=== PATIENT | female | born 1955 | race Caucasian/White ===

== ENCOUNTER 2019-02-10 19:13 | Observation (INO) ==
--- NOTE | 2019-02-10 19:59 | Emergency Department Note ---
Disposition Clinical Impression: Weakness, Pneumonia Disposition: Admitted As Inpatient Condition: Good Referrals: NONE,PCP [Primary Care Provider] - Forms: ED Satisfaction Letter General Adult HPI - General Chief complaint: ED Weakness Stated complaint: Weakness Time Seen by Provider: 02/10/19 19:16 Source: patient, EMS Mode of arrival: EMS Limitations: no limitations Nursing Notes Reviewed: Yes Vital Signs Reviewed: Yes - History of Present Illness HPI Narrative: Patient presenting to the ED from [facility] with weakness and altered mental status. EMS states that they were called and were given a packet by the retirement and told that she was confused. Have no idea how long this is been going on. Patient did not oriented to time and unable to further elaborate. She denies any pain. States she just feels weak all over. Patient also states that the "boob squad" is here. When asked what that is she says that they are here b/c her boobs are flying. Pain Scale: 0 - Related Data Previous Rx's Medication Instructions Recorded Atorvastatin [Lipitor] 40 mg PO HS 30 Days #30 tablet 01/24/19 Clopidogrel [Plavix] 75 mg PO DAILY 30 Days #30 tablet 01/24/19 Cyanocobalamin (B-12) [Vitamin B12] 1,000 mcg PO DAILY 30 Days #30 01/24/19 tablet Ergocalciferol (VITAMIN D2) 50,000 unit PO QWEEK 42 Days #6 01/24/19 [Drisdol (50,000 Unit)] capsule Folic Acid 1 mg PO DAILY 30 Days #30 tablet 01/24/19 Allergies Allergy/AdvReac Type Severity Reaction Status Date / Time aspirin Allergy Seizure Verified 01/16/19 05:44 Review of Systems: As reviewed in the HPI. All other systems reviewed are negative or normal. Past Medical History - Past Medical History Attestation: Yes The following information was validated with the patient. Source: patient, old records reviewed, obtained from family Medical history: Reports: CVA, DVT, hypertension Psychiatric history: Reports: no psych history - Social History Smoking Status: Never smoker Alcohol use: Reports: heavy Drug use: Reports: none Physical Exam CONSTITUTIONAL: [well appearing, alert and in no acute distress] EYES: [EOMI, clear conjunctiva, PERRLA] HENT: [Normocephalic, atraumatic, moist mucus membranes, normal oropharynx] NECK: [normal inspection, full ROM, trachea midline, no obvious swelling] PULMONARY: [normal lung sounds bilaterally, normal chest rise and fall, no respiratory distress or stridor, no wheezes, no rales, no rhonchi CARDIOVASCULAR: [regular rate, irregular rhythm, normal heart sounds, no murmurs, distal extremities are warm and well perfused] GASTROINSTESTINAL: [soft, non-tender, non-rigid, non-distended, no guarding, no rebound, normal bowel sounds] GENITOURINARY/RECTAL: [deferred] NEUROLOGIC: [Alert, oriented x person only, normal speech, ble weakness] EXTREMITIES: [Normal inspection, , no tenderness, no pedal edema, normal capillary refill] MUSCULOSKELETAL: [no gross deformities, atraumatic] SKIN: [No cyanosis, no diaphoresis, normal color, warm, no rash] PSYCHIATRIC: [normal mood and affect] - General Limitations: no limitations General appearance: alert, in no apparent distress Course Course Narrative: Patient appears to have pneumonia, white count is normal. Patient felt uncomfortable going home and would prefer to be admitted. Vital Signs Temperature 97.3 F L 02/10/19 19:16 Pulse Rate 72 02/10/19 19:16 Respiratory Rate 16 02/10/19 19:16 Blood Pressure 149/92 02/10/19 19:16 O2 Sat by Pulse Oximetry 100 02/10/19 19:16 Temperature 97.3 F L 02/10/19 19:16 Pulse Rate 71 02/10/19 22:30 Respiratory Rate 16 02/10/19 22:30 Blood Pressure 180/90 02/10/19 22:30 O2 Sat by Pulse Oximetry 100 02/10/19 22:30 Oxygen Delivery Oxygen Delivery Room Air Medical Decision Making - Lab Data Result diagrams: 02/10/19 20:08 02/10/19 20:08 Lab Results 02/10/19 02/10/19 02/10/19 Range/Units 20:08 20:08 20:08 WBC 7.3 (4.3-11.1) K/mcL RBC 4.08 (3.82-4.97) M/mcL Hgb 12.7 (11.5-15.4) g/dL Hct 37.9 (35.3-44.9) % MCV 92.9 (83.0-100.0) fL MCH 31.1 (28.0-33.3) pg MCHC 33.5 (31.6-35.5) g/dL RDW 17.3 H (11.5-14.5) % Plt Count 420 H (140-400) K/mcL MPV 9.3 L (9.4-12.4) fL Immature Gran % 0.3 (0-4) % Seg Neutrophils % 70.3 % Lymphocytes % 15.2 % Monocytes % 12.8 % Eosinophils % 1.0 % Basophils % 0.4 % Neutrophils # 5.1 (1.6-8.9) K/mcL Lymphocytes # 1.1 (0.6-4.6) K/mcL Monocytes # 0.9 (0.0-1.3) K/mcL Eosinophils # 0.1 (0.0-0.6) K/mcL Basophils # 0.0 (0.0-0.2) K/mcL PT 12.6 H (9.4-12.1) Seconds INR 1.1 Sodium 137 (136-145) mEq/L Potassium 3.4 L (3.5-5.1) mEq/L Chloride 107 (98-107) mEq/L Carbon Dioxide 21 L (23-29) mEq/L BUN 20 (8-23) mg/dL Creatinine 0.87 (0.60-1.20) mg/dL Est GFR ( Amer) > 60 (> 60) Est GFR (Non-Af Amer) > 60 (> 60) BUN/Creatinine Ratio 23 (6-26) Glucose 69 L (70-105) mg/dL Calculated Osmolality 285 (280-300) Calcium 8.0 L (8.6-10.3) mg/dL Creatine Kinase 51 (30-223) Units/L Troponin I 0.03 (< 0.04) ng/mL TSH 2.091 (0.340-5.600) mcIU/mL Urine Color (Yellow) Urine Clarity (Clear) Urine pH (5.0-8.0) pH Units Ur Specific [place] (1.010-1.025) Urine Protein (Neg-Trace) mg/dL Urine Glucose (UA) (Normal) mg/dL Urine Ketones (Negative) mg/dL Urine Blood (Negative) Urine Nitrite (Negative) Urine Bilirubin (Negative) Urine Urobilinogen (Normal) mg/dL Ur Leukocyte Esterase (Negative) Urine Microscopic RBC (0-3) per hpf Urine Microscopic WBC (0-3) per hpf Ur Squamous Epith Cells (None-Few) per lpf Urine Bacteria (None-Few) per hpf Hyaline Casts (None-Few) per lpf Ur Culture Indicated? (NO) 02/10/19 Range/Units 21:30 WBC (4.3-11.1) K/mcL RBC (3.82-4.97) M/mcL Hgb (11.5-15.4) g/dL Hct (35.3-44.9) % MCV (83.0-100.0) fL MCH (28.0-33.3) pg MCHC (31.6-35.5) g/dL RDW (11.5-14.5) % Plt Count (140-400) K/mcL MPV (9.4-12.4) fL Immature Gran % (0-4) % Seg Neutrophils % % Lymphocytes % % Monocytes % % Eosinophils % % Basophils % % Neutrophils # (1.6-8.9) K/mcL Lymphocytes # (0.6-4.6) K/mcL Monocytes # (0.0-1.3) K/mcL Eosinophils # (0.0-0.6) K/mcL Basophils # (0.0-0.2) K/mcL PT (9.4-12.1) Seconds INR Sodium (136-145) mEq/L Potassium (3.5-5.1) mEq/L Chloride (98-107) mEq/L Carbon Dioxide (23-29) mEq/L BUN (8-23) mg/dL Creatinine (0.60-1.20) mg/dL Est GFR ( Amer) (> 60) Est GFR (Non-Af Amer) (> 60) BUN/Creatinine Ratio (6-26) Glucose (70-105) mg/dL Calculated Osmolality (280-300) Calcium (8.6-10.3) mg/dL Creatine Kinase (30-223) Units/L Troponin I (< 0.04) ng/mL TSH (0.340-5.600) mcIU/mL Urine Color Dark Yellow (Yellow) Urine Clarity Cloudy A (Clear) Urine pH 6.0 (5.0-8.0) pH Units Ur Specific [place] 1.021 (1.010-1.025) Urine Protein 30 H (Neg-Trace) mg/dL Urine Glucose (UA) Normal (Normal) mg/dL Urine Ketones 40 H (Negative) mg/dL Urine Blood Negative (Negative) Urine Nitrite Negative (Negative) Urine Bilirubin Large H (Negative) Urine Urobilinogen 4.0 H (Normal) mg/dL Ur Leukocyte Esterase Small H (Negative) Urine Microscopic RBC 0-3 (0-3) per hpf Urine Microscopic WBC 5-15 H (0-3) per hpf Ur Squamous Epith Cells Many H (None-Few) per lpf Urine Bacteria Many H (None-Few) per hpf Hyaline Casts Few (None-Few) per lpf Ur Culture Indicated? YES A (NO)
[2019-02-10 20:18] LABS: Basophils % 0.4 %; Eosinophils # 0.1 K/mcL (0.0-0.6); Hematocrit 37.9 % (35.3-44.9); Hemoglobin 12.7 g/dL (11.5-15.4); Immature Granulocytes % 0.3 % (0-4); Lymphocytes # 1.1 K/mcL (0.6-4.6); Lymphocytes % 15.2 %; Mean Corpuscular HGB Conc 33.5 g/dL (31.6-35.5); Mean Corpuscular Hemoglobin 31.1 pg (28.0-33.3); Mean Corpuscular Volume 92.9 fL (83.0-100.0); Mean Platelet Volume 9.3 fL (9.4-12.4); Monocytes # 0.9 K/mcL (0.0-1.3); Monocytes % 12.8 %; Neutrophils # 5.1 K/mcL (1.6-8.9); Platelet Count 420 K/mcL (140-400); Red Blood Count 4.08 M/mcL (3.82-4.97); Red Cell Distribution Width 17.3 % (11.5-14.5); Segmented Neutrophils % 70.3 %
[2019-02-10 20:28] LABS: INR 1.1; Prothrombin Time 12.6 Seconds (9.4-12.1)
[2019-02-10 20:39] LABS: BUN/Creatinine Ratio 23 (6-26); Blood Urea Nitrogen 20 mg/dL (8-23); Carbon Dioxide 21 mEq/L (23-29); Chloride 107 mEq/L (98-107); Creatine Kinase 51 Units/L (30-223); Glucose 69 mg/dL (70-105); Osmolality,Calculated 285 (280-300); Potassium 3.4 mEq/L (3.5-5.1); Sodium 137 mEq/L (136-145); eGFR For Non-African Americans > 60 (> 60)
[2019-02-10 20:40] LABS: Troponin I 0.03 ng/mL (< 0.04)
[2019-02-10 20:52] LABS: Thyroid Stimulating Hormone 2.091 mcIU/mL (0.340-5.600)
[2019-02-10 21:45] LABS: Bilirubin,Urine Large (Negative); Blood,Urine Negative (Negative); Clarity,Urine Cloudy (Clear); Color,Urine Dark Yellow (Yellow); Glucose,Urine (UA) Normal (Normal); Ketones,Urine 40 mg/dL (Negative); Leukocyte Esterase,Urine Small (Negative); Nitrite,Urine Negative (Negative); Protein,Urine 30 mg/dL (Neg-Trace); Specific Gravity,Urine 1.021 (1.010-1.025)
[2019-02-10 21:47] LABS: Bacteria,Urine Many per hpf (None-Few); RBC,Urine 0-3 per hpf (0-3); Squamous Epithelial Cell,Urine Many per lpf (None-Few)
[2019-02-10 21:56] LABS: Hyaline Casts,Urine Few per lpf (None-Few)
[2019-02-10] MEDS ORDERED: cefTRIAXone 1,000 MG in Water for inj. (sterile) 20 ML 10 ML IVPB ONE (23:05)
[2019-02-10] MEDS ORDERED: Azithromycin 500 MG in D5% in Water 250 ML IVPB ONE (23:05)
--- NOTE | 2019-02-10 23:07 | Emergency Department Note ---
Disposition Clinical Impression: Weakness Pneumonia Qualifiers: Pneumonia type: due to unspecified organism Laterality: unspecified laterality Lung location: unspecified part of lung Qualified Code(s): J18.9 - Pneumonia, unspecified organism Disposition: Admitted As Inpatient Condition: Good Referrals: NONE,PCP [Primary Care Provider] - Forms: ED Satisfaction Letter Time of Disposition: 23:07 General Adult HPI - General Chief complaint: ED Weakness Stated complaint: Weakness Time Seen by Provider: 02/10/19 19:16 Source: patient, EMS Mode of arrival: EMS Limitations: no limitations - History of Present Illness Pain Scale: 0 - Related Data Previous Rx's Medication Instructions Recorded Atorvastatin [Lipitor] 40 mg PO HS 30 Days #30 tablet 01/24/19 Clopidogrel [Plavix] 75 mg PO DAILY 30 Days #30 tablet 01/24/19 Cyanocobalamin (B-12) [Vitamin B12] 1,000 mcg PO DAILY 30 Days #30 01/24/19 tablet Ergocalciferol (VITAMIN D2) 50,000 unit PO QWEEK 42 Days #6 01/24/19 [Drisdol (50,000 Unit)] capsule Folic Acid 1 mg PO DAILY 30 Days #30 tablet 01/24/19 Allergies Allergy/AdvReac Type Severity Reaction Status Date / Time aspirin Allergy Seizure Verified 01/16/19 05:44 Past Medical History - Past Medical History Medical history: Reports: CVA, DVT, hypertension Psychiatric history: Reports: no psych history - Social History Smoking Status: Never smoker Alcohol use: Reports: heavy Drug use: Reports: none Physical Exam - General Limitations: no limitations General appearance: alert, in no apparent distress Course - Consultations Consultation #1: discussed case with Dr. Sales and he accepts patient to medicine Time: 23:52 Vital Signs Temperature 97.3 F L 02/10/19 19:16 Pulse Rate 72 02/10/19 19:16 Respiratory Rate 16 02/10/19 19:16 Blood Pressure 149/92 02/10/19 19:16 O2 Sat by Pulse Oximetry 100 02/10/19 19:16 Temperature 97.3 F L 02/10/19 19:16 Pulse Rate 71 02/10/19 22:30 Respiratory Rate 16 02/10/19 22:30 Blood Pressure 180/90 02/10/19 22:30 O2 Sat by Pulse Oximetry 100 05/10/19 22:30 Oxygen Delivery Oxygen Delivery Room Air Medical Decision Making - Lab Data Result diagrams: 02/10/19 20:08 02/10/19 20:08 Lab Results 02/10/19 02/10/19 02/10/19 Range/Units 20:08 20:08 20:08 WBC 7.3 (4.3-11.1) K/mcL RBC 4.08 (3.82-4.97) M/mcL Hgb 12.7 (11.5-15.4) g/dL Hct 37.9 (35.3-44.9) % MCV 92.9 (83.0-100.0) fL MCH 31.1 (28.0-33.3) pg MCHC 33.5 (31.6-35.5) g/dL RDW 17.3 H (11.5-14.5) % Plt Count 420 H (140-400) K/mcL MPV 9.3 L (9.4-12.4) fL Immature Gran % 0.3 (0-4) % Seg Neutrophils % 70.3 % Lymphocytes % 15.2 % Monocytes % 12.8 % Eosinophils % 1.0 % Basophils % 0.4 % Neutrophils # 5.1 (1.6-8.9) K/mcL Lymphocytes # 1.1 (0.6-4.6) K/mcL Monocytes # 0.9 (0.0-1.3) K/mcL Eosinophils # 0.1 (0.0-0.6) K/mcL Basophils # 0.0 (0.0-0.2) K/mcL PT 12.6 H (9.4-12.1) Seconds INR 1.1 Sodium 137 (136-145) mEq/L Potassium 3.4 L (3.5-5.1) mEq/L Chloride 107 (98-107) mEq/L Carbon Dioxide 21 L (23-29) mEq/L BUN 20 (8-23) mg/dL Creatinine 0.87 (0.60-1.20) mg/dL Est GFR ( Amer) > 60 (> 60) Est GFR (Non-Af Amer) > 60 (> 60) BUN/Creatinine Ratio 23 (6-26) Glucose 69 L (70-105) mg/dL Calculated Osmolality 285 (280-300) Calcium 8.0 L (8.6-10.3) mg/dL Creatine Kinase 51 (30-223) Units/L Troponin I 0.03 (< 0.04) ng/mL TSH 2.091 (0.340-5.600) mcIU/mL Urine Color (Yellow) Urine Clarity (Clear) Urine pH (5.0-8.0) pH Units Ur Specific [place] (1.010-1.025) Urine Protein (Neg-Trace) mg/dL Urine Glucose (UA) (Normal) mg/dL Urine Ketones (Negative) mg/dL Urine Blood (Negative) Urine Nitrite (Negative) Urine Bilirubin (Negative) Urine Urobilinogen (Normal) mg/dL Ur Leukocyte Esterase (Negative) Urine Microscopic RBC (0-3) per hpf Urine Microscopic WBC (0-3) per hpf Ur Squamous Epith Cells (None-Few) per lpf Urine Bacteria (None-Few) per hpf Hyaline Casts (None-Few) per lpf Ur Culture Indicated? (NO) 02/10/19 Range/Units 21:30 WBC (4.3-11.1) K/mcL RBC (3.82-4.97) M/mcL Hgb (11.5-15.4) g/dL Hct (35.3-44.9) % MCV (83.0-100.0) fL MCH (28.0-33.3) pg MCHC (31.6-35.5) g/dL RDW (11.5-14.5) % Plt Count (140-400) K/mcL MPV (9.4-12.4) fL Immature Gran % (0-4) % Seg Neutrophils % % Lymphocytes % % Monocytes % % Eosinophils % % Basophils % % Neutrophils # (1.6-8.9) K/mcL Lymphocytes # (0.6-4.6) K/mcL Monocytes # (0.0-1.3) K/mcL Eosinophils # (0.0-0.6) K/mcL Basophils # (0.0-0.2) K/mcL PT (9.4-12.1) Seconds INR Sodium (136-145) mEq/L Potassium (3.5-5.1) mEq/L Chloride (98-107) mEq/L Carbon Dioxide (23-29) mEq/L BUN (8-23) mg/dL Creatinine (0.60-1.20) mg/dL Est GFR ( Amer) (> 60) Est GFR (Non-Af Amer) (> 60) BUN/Creatinine Ratio (6-26) Glucose (70-105) mg/dL Calculated Osmolality (280-300) Calcium (8.6-10.3) mg/dL Creatine Kinase (30-223) Units/L Troponin I (< 0.04) ng/mL TSH (0.340-5.600) mcIU/mL Urine Color Dark Yellow (Yellow) Urine Clarity Cloudy A (Clear) Urine pH 6.0 (5.0-8.0) pH Units Ur Specific [place] 1.021 (1.010-1.025) Urine Protein 30 H (Neg-Trace) mg/dL Urine Glucose (UA) Normal (Normal) mg/dL Urine Ketones 40 H (Negative) mg/dL Urine Blood Negative (Negative) Urine Nitrite Negative (Negative) Urine Bilirubin Large H (Negative) Urine Urobilinogen 4.0 H (Normal) mg/dL Ur Leukocyte Esterase Small H (Negative) Urine Microscopic RBC 0-3 (0-3) per hpf Urine Microscopic WBC 5-15 H (0-3) per hpf Ur Squamous Epith Cells Many H (None-Few) per lpf Urine Bacteria Many H (None-Few) per hpf Hyaline Casts Few (None-Few) per lpf Ur Culture Indicated? YES A (NO) Attestation Statement - Attestation Attestation: I examined this patient and my medical decision-making was reviewed with the [facility] Physician. I agree with the documented findings, disposition and treatment plan as described except to the extent set forth below. 64 year old female presents to the ED with complaints of weaknes and it apepars that she has pneumonia on CXR and otehrwise is not hypoxic but appears frgaile and weak at bedside. WE will start ABX and then admit ot medicine.
[2019-02-11] MEDS ORDERED: traMADol 50 MG TABLET PO PRN (02:02)
[2019-02-11] MEDS ORDERED: *HR* Promethazine 25 MG/ML VIAL IVP PRN (02:02)
[2019-02-11] MEDS ORDERED: Naloxone 0.4 MG/ML INJ IVP PRN (02:02)
[2019-02-11] MEDS ORDERED: Acetaminophen 325 MG TABLET PO PRN (02:02)
--- NOTE | 2019-02-11 02:36 | Internal Med History&Physical ---
Date of Encounter: 02/11/19 Time of Encounter: 01:30 Internal Medicine - H&P: HPI Chief complaint: AMS/Weakness Admitted From: Emergency Dept Plans for Post Hospital Care: Home History of present illness: Ms. 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 Pt. states she [place] alone [place] [facility]. EMS was called by [facility] where pt. lives d/t confusion. Pt. states she is very weak. She was able to tell me who the President of the was, her birthdate, where she is, but was not able to give me the correct year. Pt. believes she has been in the hospital for several days. Pt. reports she does not eat well. Patient denies recent illness or sick contacts, fever, chills, headache, changes in vision, unusual bleeding, chest pain, shortness of breath, cough, chest congestion, abdominal pain, diarrhea, constipation, numbness, tingling, dizziness, lightheadedness, pre-syncope, or syncope. Past Med Surg Social Fam HX - Past Medical History Source: patient, old records reviewed Medical history: CVA, DVT, GERD, hyperlipidemia, hypertension Additional medical history: weakness. rhabdomyolysis. ascities. ETOH abuse. carotid stenosis Psychiatric history: no psych history - Past Surgical History Additional surgical history: gastric bypass 2004 - Social History Smoking Status: Former smoker Packs per day: 2.5 PPD - Reports quitting "a long time ago" Alcohol use: heavy Drug use: none Current living situation: [facility] Activity Level: Independent ambulation Recent Out of Country Travel Within the Last 8 Weeks: No Exposure or Possible Exposure to Illness During Travel: No - Family History Father Race: Family Member Ethnicity: Non- Living Status: Cause of : Drug/Alcohol abuse Paternal Grandmother Race: Family Member Ethnicity: Non- Living Status: Hx Family Cardiac Disorders: Yes (Coronary artery disease) Hx Family Cancer: Yes (Breast cancer) Mother Race: Family Member Ethnicity: Non- Living Status: Still Living Hx Family Medical Disorders: No Sister Race: Family Member Ethnicity: Non- Living Status: Still Living Hx Family Psychosocial Disorders: Yes (Obesity) Internal Medicine - H&P: Meds Atorvastatin [Lipitor] 40 mg PO HS 30 Days #30 tablet 01/24/19 [Rx] Clopidogrel [Plavix] 75 mg PO DAILY 30 Days #30 tablet 01/24/19 [Rx] Cyanocobalamin (B-12) [Vitamin B12] 1,000 mcg PO DAILY 30 Days #30 tablet 01/24/19 [Rx] Ergocalciferol (VITAMIN D2) [Drisdol (50,000 Unit)] 50,000 unit PO QWEEK 42 Days #6 capsule 01/24/19 [Rx] Folic Acid 1 mg PO DAILY 30 Days #30 tablet 01/24/19 [Rx] Alprazolam 0.25 mg PO DAILY 02/11/19 [History] Gabapentin 100 mg PO TID 02/11/19 [History] Lisinopril 5 mg PO DAILY 02/11/19 [History] Metoprolol Tartrate 25 mg PO BID 02/11/19 [History] Ondansetron 4 mg PO Q6H PRN 02/11/19 [History] Pantoprazole 40 mg PO DAILY 02/11/19 [History] Allergy/AdvReac Type Severity Reaction Status Date / Time aspirin Allergy Seizure Verified 01/16/19 05:44 All Systems PM: A 10-system review of systems was performed and is negative for pertinent findings except as documented above in the HPI. - Constitutional Constitutional: as per HPI, anorexia, fatigue, weakness, no chills, no fever(s), no night sweats - EENT Eyes: no change in vision, no discharge, no pain, no photophobia Ears: no ear discharge, no ear pain, no tinnitus Nose, mouth and throat: no dysphagia, no nasal discharge, no neck pain, no sore throat - Breasts Breasts: as per HPI - Cardiovascular Cardiovascular ROS IM: as per HPI, no chest pain, no diaphoresis, no dyspnea, no lightheadedness, no palpitations, no syncope - Respiratory Respiratory: no cough, no dyspnea, no wheezing, no excessive phlegm production - Gastrointestinal Gastrointestinal: no abdominal pain, no diarrhea, no hematemesis, no hematochezia, no melena, no nausea, no vomiting - Genitourinary Genitourinary: no change in urinary stream, no dysuria, no flank pain, no hematuria Menstruation: as per HPI - Musculoskeletal Musculoskeletal ROS IM: no numbness, no tingling - Integumentary Integumentary IM: no rash, no unusual bruising - Neurological Neurological ROS: as per HPI, weakness, no confusion, no convulsions, no focal weakness, no numbness, no tingling, no tremor(s) - Psychiatric Psychiatric: as per HPI - Endocrine Endocrine IM: as per HPI - Hematologic/Lymphatic Hematologic/Lymphatic: no easy bruising - Allergic/Immunologic Allergic/Immunologic: as per HPI - Constitutional Vitals: Temp Pulse Resp BP Pulse Ox 98.1 F 68 18 171/87 97 02/11/19 01:03 02/11/19 01:03 02/11/19 01:03 02/11/19 01:03 02/11/19 01:03 General appearance: Present: cooperative, A&O X 2, pleasant, no acute distress, underweight Exam: Patient examined at bedside. Pt. states she lives alone in [place] [facility]. EMS was called by [facility] where pt. lives d/t confusion. Pt. states she is very weak. She was able to tell me who the President of the was, her birthdate, where she is, but was not able to give me the correct year. Pt. believes she has been in the hospital for several days. Pt. denies any other sx or complaints at this time. VS: 98.1F temp, HR 68, RR 18, BP 171/87, SpO2 97% on RA. - Head Head exam: Present: atraumatic, normocephalic - Eye Eye exam: Present: PERRL, conjuntiva pink, sclera anicteric Pupils: Present: PERRL - ENT ENT exam: Present: normal exam - Neck Neck exam general surgery: Present: normal inspection, supple, trachea midline. Absent: lymphadenopathy - Respiratory Respiratory exam: Present: CTAB. Absent: accessory muscle use, rales, rhonchi, wheezes - Cardiovascular Cardiovascular exam: Present: RRR, +S1, +S2. Absent: diastolic murmur, gallop, rubs, systolic murmur - GI/Abdominal GI/Abdominal exam: Present: normal bowel sounds, soft, no peritoneal signs. Absent: distended, tenderness - Rectal Rectal exam: Present: deferred - Additional comments: exam deferred. - Extremities Exam Extremities exam: Present: warm, radial pulses palpable and symmetrical. Absent: calf tenderness, cyanotic, pedal edema - Back Exam Back exam: Present: normal inspection - Neurological Exam Neurological exam: Present: altered, CN II-XII intact, no focal deficits. Absent: pronater drift, facial droop, speech deficit - Psychiatric Psychiatric exam: Present: normal affect, normal mood - Skin Skin exam: Present: dry, intact Internal Med - H&P Results - Labs CBC & Chem 7: 02/10/19 20:08 02/10/19 20:08 Labs: Short CBC 02/10/19 Range/Units 20:08 WBC 7.3 (4.3-11.1) K/mcL Hgb 12.7 (11.5-15.4) g/dL Hct 37.9 (35.3-44.9) % Plt Count 420 H (140-400) K/mcL Neutrophils # 5.1 (1.6-8.9) K/mcL BMP 02/10/19 20:08 Sodium 137 Potassium 3.4 L Chloride 107 Carbon Dioxide 21 L BUN 20 Creatinine 0.87 Glucose 69 L Calcium 8.0 L Cardiac Enzymes 02/10/19 Range/Units 20:08 Troponin I 0.03 (< 0.04) ng/mL Urine 02/10/19 Range/Units 21:30 Urine Color Dark Yellow (Yellow) Urine Clarity Cloudy A (Clear) Urine pH 6.0 (5.0-8.0) pH Units Ur Specific [place] 1.021 (1.010-1.025) Urine Protein 30 H (Neg-Trace) mg/dL Urine Glucose (UA) Normal (Normal) mg/dL - Impressions ITS Impressions Chest X-Ray 02/10/19 19:37 IMPRESSION: Elevated left hemidiaphragm with airspace opacification at the left lung base could represent atelectasis or pneumonia D/ / Casimiro Bermeo MD / Casimiro Bermeo MD Interpreting Provider: Casimiro Bermeo MD Head CT 02/10/19 19:38 IMPRESSION: No acute intracranial abnormality. D/ / Sanket Yanes / Sanket Yanes Interpreting Provider: Sanket Yanes - Diagnostic Studies CT scan - head Additional comments: Impressions Head CT 02/10/19 19:38 IMPRESSION: No acute intracranial abnormality. D/ / Sanket Yanes / Sanket Yanes Interpreting Provider: Sanket Yanes Chest x-ray Additional comments: Impressions Chest X-Ray 02/10/19 19:37 IMPRESSION: Elevated left hemidiaphragm with airspace opacification at the left lung base could represent atelectasis or pneumonia D/ / Casimiro Bermeo MD / Casimiro Bermeo MD Interpreting Provider: Casimiro Bermeo MD - Assessment and Plan (1) Pneumonia Current Visit: Yes Status: Acute Assessment and plan: Acute CAP. Pt. denies any sick contacts. Pt. denies any recent hospitalization. WBC 7.3. VS WNL. CXR today shows elevated left hemidiaphragm with airspace opacification of the left lung base could represent atelectasis or pneumonia. Pt . denies cough, SOB, or chest congestion. Denies home O2 use. Stat blood cultures 2 ordered. Urine culture ordered stat. Legionella and streptococcal pneumoniae antigens ordered. IVPB azithromycin and ceftriaxone ordered for infection coverage of pneumonia as well as UTI. DuoNeb's every 6 hours when necessary. Continuous cardiac telemetry. Supplemental O2 with titration and SPO2 monitoring. Pt. is high risk for further morbidity and complications d/t current PNA complicated by UTI, AMS, severe weakness, decreased appetite and intake, hx of alcohol abuse, hx of tobacco abuse, and risk factors. Observation. Qualifiers: Pneumonia type: due to unspecified organism Laterality: left Lung location: lower lobe of lung Qualified Code(s): J18.1 - Lobar pneumonia, unspecified organism (2) UTI (urinary tract infection) Current Visit: Yes Status: Acute Assessment and plan: Acute UTI. U/A indicative of UTI and culture. Ammonia level ordered. Hepatic panel ordered d/t hx of alcohol abuse. IVPB azithromycin and ceftriaxone for infection coverage. Monitor I&O. Qualifiers: Urinary tract infection type: site unspecified Hematuria presence: without hematuria Qualified Code(s): N39.0 - Urinary tract infection, site not specified (3) Altered mental status Current Visit: Yes Status: Acute Assessment and plan: Acute AMS. Pt. is A&O x2. Exhibits some lucid moments then moments of confusion. U/A indicative of UTI and culture. Ammonia level ordered. Hepatic panel ordered d/t hx of alcohol abuse. IVPB azithromycin and ceftriaxone for infection coverage. Falls/safety precautions and up with assist. Qualifiers: Altered mental status type: disorientation Qualified Code(s): R41.0 - Disorientation, unspecified (4) Weakness Current Visit: Yes Status: Acute Assessment and plan: Acute and severe weakness. Pt. reports she is not eating well. Nutrition consult ordered for PO supplementation. Falls/safety precautions and up with assist. (5) HTN (hypertension) Current Visit: Yes Status: Chronic Assessment and plan: Hx of chronic HTN. Monitor pt. and VS. continue patient's metoprolol and lisinopril. IVP hydralazine w/parameters ordered. Qualifiers: Hypertension type: essential hypertension Qualified Code(s): I10 - Essential (primary) hypertension (6) HLD (hyperlipidemia) Current Visit: Yes Status: Chronic Assessment and plan: Hx of chronic HLD. Lipid panel in a.m. labs. Continue pts. Lipitor. Qualifiers: Hyperlipidemia type: pure hypercholesterolemia Qualified Code(s): E78.00 - Pure hypercholesterolemia, unspecified; E78.0 - Pure hypercholesterolemia (7) Alcohol abuse Current Visit: Yes Status: Chronic Assessment and plan: Hx of chronic alcohol abuse. Pt. reports she drinks "a lot" and last drink was 4-5 days ago. Stat blood alcohol level ordered. Will start CIWA scale based on blood alcohol results. B12 and Folate levels in a.m. labs. Continue pts. PO B12. (8) Vitamin D deficiency Current Visit: Yes Status: Chronic Assessment and plan: Hx of chronic vitamin D deficiency. 25-oh vitamin D level in a.m. labs. (9) Anxiety Current Visit: Yes Status: Chronic Assessment and plan: Hx of chronic anxiety. Continue pts. Alprazolam. (10) DVT prophylaxis Current Visit: Yes Status: Acute Assessment and plan: Heparin 5,000 units SQ Q12HR for DVT prophylaxis. Monitor pt. for signs of bleeding. - Time Spent With Patient Total time spent is greater than 50% in coordination of care (as documented) at patient's floor/unit and/or counseling patient: Greater than 35 minutes
[2019-02-11] MEDS: Gabapentin 100 MG CAPSULE PO SCH ×4 (03:40→21:28)
[2019-02-11] MEDS ORDERED: Ipratropium/Albuterol Neb 3 ML IH PRN (04:00)
[2019-02-11] MEDS: *HR* Heparin 5,000 UNIT/ML VIAL SQ SCH ×2 (05:43→17:09)
[2019-02-11] MEDS ORDERED: Ondansetron ODT 4 MG TAB.RAPDIS PO PRN (07:19)
[2019-02-11] MEDS: ALPRAZolam 0.25 MG TABLET PO SCH (08:55)
[2019-02-11] MEDS: Folic Acid 1 MG TABLET PO SCH (08:55)
[2019-02-11] MEDS ORDERED: Cyanocobalamin (B-12) 1,000 MCG TABLET PO SCH (09:00)
[2019-02-11 09:07] LABS: Hematocrit 34.3 % (35.3-44.9); Hemoglobin 11.7 g/dL (11.5-15.4); Mean Corpuscular HGB Conc 34.1 g/dL (31.6-35.5); Mean Corpuscular Hemoglobin 31.5 pg (28.0-33.3); Mean Corpuscular Volume 92.2 fL (83.0-100.0); Mean Platelet Volume 9.3 fL (9.4-12.4); Platelet Count 374 K/mcL (140-400); Red Blood Count 3.72 M/mcL (3.82-4.97); Red Cell Distribution Width 17.4 % (11.5-14.5)
[2019-02-11 09:17] LABS: Alanine Aminotransferase 36 Units/L (7-52); Albumin/Globulin Ratio 1.2 (1.1-2.2); Alkaline Phosphatase 114 Units/L (34-104); Aspartate Amino Transferase 54 Units/L (13-39); BUN/Creatinine Ratio 24 (6-26); Bilirubin,Direct 0.3 mg/dL (0.0-0.2); Bilirubin,Indirect 0.7 mg/dL (0.0-1.2); Blood Urea Nitrogen 19 mg/dL (8-23); Calcium 7.6 mg/dL (8.6-10.3); Carbon Dioxide 22 mEq/L (23-29); Chloride 105 mEq/L (98-107); Chol/HDL Ratio 3.9 (0-4.9); Cholesterol 174 mg/dL (< 200); Globulin 2.6 g/dL (2.4-3.5); Glucose 69 mg/dL (70-105); HDL Cholesterol 45 mg/dL (40-59); LDL Cholesterol,Calculated 106 mg/dL (0-99); Magnesium 1.6 mg/dL (1.6-2.6); Osmolality,Calculated 287 (280-300); Potassium 3.8 mEq/L (3.5-5.1); Sodium 138 mEq/L (136-145); Total Protein 5.6 g/dL (6.4-8.9); Triglycerides 115 mg/dL (< 150); eGFR For Non-African Americans > 60 (> 60)
[2019-02-11 09:41] LABS: Folate 15.3 ng/mL (3.0-16.0)
[2019-02-11 09:42] LABS: Vitamin B12 > 1500 pg/mL (250-1100)
--- NOTE | 2019-02-11 14:15 | Event Note ---
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 Patient feels weak. Mentally clear. Oriented 3. Denies dysuria. Denies cough or shortness of breath Pt is AAO x 3, in NAD, thin built HEENT: NC/AT, PERRL Neck: Supple, no JVD, no LAD Lungs: CTA b/l Heart: S1S2, RRR Abd: Soft, nontender, BS present Ext: ROM wnl, no pedal edema Neuro: Bilateral leg weakness which is chronic Plan: UTI: Continue Rocephin. Follow-up urine culture Weakness: Continue PTOT, plan for ECF discharge Pneumonia: Less likely pneumonia as patient has no clinical symptoms. Atypical antigen negative. Will DC azithromycin.
[2019-02-11] MEDS ORDERED: cefTRIAXone 2,000 MG in Water for inj. (sterile) 20 ML 20 ML IVP SCH (22:00)
[2019-02-11] MEDS ORDERED: Azithromycin 500 MG in D5% in Water 250 ML IVPB SCH (23:30)
[2019-02-12 01:38] LABS: Basophils % 0.3 %; Eosinophils % 0.6 %; Hematocrit 38.7 % (35.3-44.9); Hemoglobin 13.1 g/dL (11.5-15.4); Immature Granulocytes % 0.4 % (0-4); Lymphocytes % 14.5 %; Mean Corpuscular HGB Conc 33.9 g/dL (31.6-35.5); Mean Corpuscular Hemoglobin 31.3 pg (28.0-33.3); Mean Corpuscular Volume 92.6 fL (83.0-100.0); Mean Platelet Volume 9.6 fL (9.4-12.4); Monocytes # 0.8 K/mcL (0.0-1.3); Monocytes % 11.5 %; Platelet Count 467 K/mcL (140-400); Red Blood Count 4.18 M/mcL (3.82-4.97); Red Cell Distribution Width 17.6 % (11.5-14.5); Segmented Neutrophils % 72.7 %
[2019-02-12 01:57] LABS: BUN/Creatinine Ratio 23 (6-26); Blood Urea Nitrogen 20 mg/dL (8-23); Calcium 8.1 mg/dL (8.6-10.3); Carbon Dioxide 22 mEq/L (23-29); Chloride 105 mEq/L (98-107); Glucose 60 mg/dL (70-105); Osmolality,Calculated 290 (280-300); Potassium 3.8 mEq/L (3.5-5.1); Sodium 140 mEq/L (136-145); eGFR For Non-African Americans > 60 (> 60)
[2019-02-12] MEDS: *HR* Heparin 5,000 UNIT/ML VIAL SQ SCH (05:46)
[2019-02-12] MEDS: ALPRAZolam 0.25 MG TABLET PO SCH (08:42)
[2019-02-12] MEDS: Folic Acid 1 MG TABLET PO SCH (08:42)
[2019-02-12] MEDS: Gabapentin 100 MG CAPSULE PO SCH ×2 (08:42→13:56)
[2019-02-12 11:42] LABS: Estimated Average Glucose 62 mg/dl; Hemoglobin A1C 3.8 %
--- NOTE | 2019-02-12 12:07 | AcuteCare Surgery Consult Note ---
<Ladi Brown N - Last Filed: 02/12/19 12:18> Date of Encounter: 02/12/19 Time of Encounter: 12:18 Assessment and Plan (1) Severe protein-calorie malnutrition Status: Acute 64-year-old female with a prior history of gastric bypass surgery with evidence for severe protein calorie malnutrition admitted for generalized weakness and altered mental status No prior records available from patient's bariatric surgery, patient is a poor historian and cannot completely recall where and when the surgery took place Recommend protein supplementation and appreciate nutrition recommendations Albumin 3.0, will order prealbumin Recommend establishing with bariatric surgery on an outpatient basis History of Present Illness Consult date: 02/12/19 History of present illness: Patient is a 64-year-old female with a past family history of gastric bypass surgery, CVA with residual left-sided weakness, hypertension, hyperlipidemia, and GERD who presented to the emergency department for weakness and altered ment al status. Patient was admitted to the hospital with initial concerns for pneumonia which was later ruled out. Acute care surgery was consulted for malnutrition with a history of bariatric surgery. Nutrition is following the patient and notes severe protein-calorie malnutrition with weight loss c reatinine 7.5% in 3 months. Patient seen and examined, she is a poor historian and the history is limited. She states that she underwent gastric bypass surgery a few years ago and believes that it was performed in [place]. She is not oriented to time and therefore does not know the year or surgery. Patient states she lives alone at home and cooks for herself however on review of records it appears the patient was brought to the hospital from an F where she currently resides. On review [facility], unable to find recent visits that mention her prior surgical history. Previous abdominal imaging from 01/18/19 reveals postsurgical changes related to gastric bypass with small bowel anastomosis in the left upper quadrant, no postoperative complications were evident at that time. Past Med Surg Social Fam HX - Past Medical History Medical history: CVA, DVT, GERD, hyperlipidemia, hypertension Additional medical history: weakness. rhabdomyolysis. ascities. ETOH abuse. carotid stenosis Psychiatric history: no psych history - Past Surgical History Additional surgical history: gastric bypass 2004 - Social History Smoking Status: Former smoker Packs per day: 2.5 PPD - Reports quitting "a long time ago" Alcohol use: heavy Drug use: none - Family History Father Race: Family Member Ethnicity: Non- Living Status: Cause of : Drug/Alcohol abuse Hx Family Cardiac Disorders: Yes (Coronary artery disease) Hx Family Endocrine Disorder: Yes (Hypertension) Paternal Grandmother Race: Family Member Ethnicity: Non- Living Status: Hx Family Cardiac Disorders: Yes (Coronary artery disease) Hx Family Cancer: Yes (Breast cancer) Mother Race: Family Member Ethnicity: Non- Living Status: Still Living Hx Family Medical Disorders: No Sister Race: Family Member Ethnicity: Non- Living Status: Still Living Hx Family Psychosocial Disorders: Yes (Obesity) Medications and Allergies Atorvastatin [Lipitor] 40 mg PO HS 30 Days #30 tablet 01/24/19 [Rx] Clopidogrel [Plavix] 75 mg PO DAILY 30 Days #30 tablet 01/24/19 [Rx] Cyanocobalamin (B-12) [Vitamin B12] 1,000 mcg PO DAILY 30 Days #30 tablet 01/24/19 [Rx] Ergocalciferol (VITAMIN D2) [Drisdol (50,000 Unit)] 50,000 unit PO QWEEK 42 Days #6 capsule 01/24/19 [Rx] Folic Acid 1 mg PO DAILY 30 Days #30 tablet 01/24/19 [Rx] ALPRAZolam [Xanax 0.25 MG Tablet] 0.25 mg PO Q6H PRN 02/11/19 [History] Gabapentin [Neurontin] 100 mg PO TID 02/11/19 [History] Lisinopril [Zestril] 5 mg PO DAILY 02/11/19 [History] Metoprolol [Lopressor] 25 mg PO BID 02/11/19 [History] Ondansetron HCl [Zofran] 4 mg PO Q6H PRN 02/11/19 [History] Pantoprazole Sodium [Protonix] 40 mg PO DAILY 02/11/19 [History] hydrALAZINE [HydrALAZINE] 10 mg PO Q6H PRN 02/11/19 [History] raNITIdine HCl [Zantac] 150 mg PO DAILY 02/11/19 [History] Allergy/AdvReac Type Severity Reaction Status Date / Time aspirin Allergy Seizure Verified 01/16/19 05:44 Review of Systems All systems PM: The remainder of the systems were reviewed and are negative - Constitutional no chills, no fever(s) - Cardiovascular no chest pain - Respiratory no dyspnea - Gastrointestinal no abdominal pain, no hematochezia, no loose stools, no nausea, no vomiting - Genitourinary Genitourinary: no dysuria, no hematuria - Musculoskeletal muscle weakness - Neurological weakness - Psychiatric confusion General Surgery Exam Initial Vital Signs Temp Pulse Resp BP Pulse Ox 97.3 F L 72 16 149/92 100 02/10/19 19:16 02/10/19 19:16 02/10/19 19:16 02/10/19 19:16 02/10/19 19:16 - General physical appearance no distress, cachectic - Eyes PERRL, normal ocular movement - ENT normal pinna, no hearing loss - Neck trachea midline, no venous distension - Respiratory normal respiratory effort, clear to auscultation - Cardiovascular Cardiovascular exam: Present: RRR. Absent: murmurs - Abdomen Abdomen general surgery: Present: bowel sounds present, soft, non tender - Integumentary Integumentary general surgery: Present: warm and dry - Neurologic Present: other (Confused, poor historian) - Psychiatric Psychiatric general surgery: Present: oriented to person. Absent: oriented to place, oriented to time, memory intact Exam Initial Vital Signs Temp Pulse Resp BP Pulse Ox 97.3 F L 72 16 149/92 100 02/10/19 19:16 02/10/19 19:16 02/10/19 19:16 02/10/19 19:16 02/10/19 19:16 Results - Labs 02/12/19 00:36 02/12/19 00:36 Abnormal lab results RBC 3.72 M/mcL (3.82-4.97) L 02/11/19 08:45 Hct 34.3 % (35.3-44.9) L 02/11/19 08:45 RDW 17.6 % (11.5-14.5) H 02/12/19 00:36 Plt Count 467 K/mcL (140-400) H 02/12/19 00:36 MPV 9.3 fL (9.4-12.4) L 02/11/19 08:45 PT 12.6 Seconds (9.4-12.1) H 02/10/19 20:08 Potassium 3.4 mEq/L (3.5-5.1) L 02/10/19 20:08 Carbon Dioxide 22 mEq/L (23-29) L 02/12/19 00:36 Glucose 60 mg/dL (70-105) L 02/12/19 00:36 Calcium 8.1 mg/dL (8.6-10.3) L 02/12/19 00:36 0.3 mg/dL (0.0-0.2) H 02/11/19 08:45 AST 54 Units/L (13-39) H 02/11/19 08:45 114 Units/L (34-104) H 02/11/19 08:45 5.6 g/dL (6.4-8.9) L 02/11/19 08:45 3.0 g/dL (3.5-5.7) L 02/11/19 08:45 LDL Cholesterol, Calc 106 mg/dL (0-99) H 02/11/19 08:45 Vitamin B12 > 1500 pg/mL (250-1100) H 02/11/19 08:45 25-OH Vitamin D Total 7 ng/mL (30-80) L 02/11/19 08:45 Cloudy (Clear) A 02/10/19 21:30 30 mg/dL (Neg-Trace) H 02/10/19 21:30 40 mg/dL (Negative) H 02/10/19 21:30 Large (Negative) H 02/10/19 21:30 4.0 mg/dL (Normal) H 02/10/19 21:30 Ur Leukocyte Esterase Small (Negative) H 02/10/19 21:30 5-15 per hpf (0-3) H 02/10/19 21:30 Ur Squamous Epith Cells Many per lpf (None-Few) H 02/10/19 21:30 Many per hpf (None-Few) H 02/10/19 21:30 Ur Culture Indicated? YES (NO) A 02/10/19 21:30 Diabetes panel 02/11/19 02/12/19 Range/Units 08:45 00:36 Sodium 140 (136-145) mEq/L Potassium 3.8 (3.5-5.1) mEq/L Chloride 105 (98-107) mEq/L Carbon Dioxide 22 L (23-29) mEq/L BUN 20 (8-23) mg/dL Creatinine 0.88 (0.60-1.20) mg/dL Glucose 60 L (70-105) mg/dL Hemoglobin A1c 3.8 ( - 5.6) % Calcium 8.1 L (8.6-10.3) mg/dL Calcium panel 02/12/19 Range/Units 00:36 Calcium 8.1 L (8.6-10.3) mg/dL Pituitary panel 02/12/19 Range/Units 00:36 Sodium 140 (136-145) mEq/L Potassium 3.8 (3.5-5.1) mEq/L Chloride 105 (98-107) mEq/L Carbon Dioxide 22 L (23-29) mEq/L BUN 20 (8-23) mg/dL Creatinine 0.88 (0.60-1.20) mg/dL Glucose 60 L (70-105) mg/dL Calcium 8.1 L (8.6-10.3) mg/dL Adrenal panel 02/12/19 Range/Units 00:36 Sodium 140 (136-145) mEq/L Potassium 3.8 (3.5-5.1) mEq/L Chloride 105 (98-107) mEq/L Carbon Dioxide 22 L (23-29) mEq/L BUN 20 (8-23) mg/dL Creatinine 0.88 (0.60-1.20) mg/dL Glucose 60 L (70-105) mg/dL Calcium 8.1 L (8.6-10.3) mg/dL All other labs normal. Consult Discharge Plan - Plan Instructions: Urinary Tract Infection in Women (DC), Vertigo (DC), Rhabdomyolysis (DC), Weakness (GEN), Altered Mental Status (GEN) Referrals: NONE,PCP [Primary Care Provider] - <Suraj Acevedo - Last Filed: 02/12/19 16:37> Date of Encounter: 02/12/19 Review of Systems All systems PM: The remainder of the systems were reviewed and are negative General Surgery Exam Initial Vital Signs Temp Pulse Resp BP Pulse Ox 97.3 F L 72 16 149/92 100 02/10/19 19:16 02/10/19 19:16 02/10/19 19:16 02/10/19 19:16 02/10/19 19:16 Exam Initial Vital Signs Temp Pulse Resp BP Pulse Ox 97.3 F L 72 16 149/92 100 02/10/19 19:16 02/10/19 19:16 02/10/19 19:16 02/10/19 19:16 02/10/19 19:16 Results - Labs 02/12/19 00:36 02/12/19 00:36 Abnormal lab results RBC 3.72 M/mcL (3.82-4.97) L 02/11/19 08:45 Hct 34.3 % (35.3-44.9) L 02/11/19 08:45 RDW 17.6 % (11.5-14.5) H 02/12/19 00:36 Plt Count 467 K/mcL (140-400) H 02/12/19 00:36 MPV 9.3 fL (9.4-12.4) L 02/11/19 08:45 PT 12.6 Seconds (9.4-12.1) H 02/10/19 20:08 Potassium 3.4 mEq/L (3.5-5.1) L 02/10/19 20:08 Carbon Dioxide 22 mEq/L (23-29) L 02/12/19 00:36 Glucose 60 mg/dL (70-105) L 02/12/19 00:36 Calcium 8.1 mg/dL (8.6-10.3) L 02/12/19 00:36 0.3 mg/dL (0.0-0.2) H 02/11/19 08:45 AST 54 Units/L (13-39) H 02/11/19 08:45 114 Units/L (34-104) H 02/11/19 08:45 5.6 g/dL (6.4-8.9) L 02/11/19 08:45 3.0 g/dL (3.5-5.7) L 02/11/19 08:45 11.9 mg/dL (17.0-34.0) L 02/12/19 14:25 LDL Cholesterol, Calc 106 mg/dL (0-99) H 02/11/19 08:45 Vitamin B12 > 1500 pg/mL (250-1100) H 02/11/19 08:45 25-OH Vitamin D Total 7 ng/mL (30-80) L 02/11/19 08:45 Cloudy (Clear) A 02/10/19 21:30 30 mg/dL (Neg-Trace) H 02/10/19 21:30 40 mg/dL (Negative) H 02/10/19 21:30 Large (Negative) H 02/10/19 21:30 4.0 mg/dL (Normal) H 02/10/19 21:30 Ur Leukocyte Esterase Small (Negative) H 02/10/19 21:30 5-15 per hpf (0-3) H 02/10/19 21:30 Ur Squamous Epith Cells Many per lpf (None-Few) H 02/10/19 21:30 Many per hpf (None-Few) H 02/10/19 21:30 Ur Culture Indicated? YES (NO) A 02/10/19 21:30 Diabetes panel 02/11/19 02/12/19 Range/Units 08:45 00:36 Sodium 140 (136-145) mEq/L Potassium 3.8 (3.5-5.1) mEq/L Chloride 105 (98-107) mEq/L Carbon Dioxide 22 L (23-29) mEq/L BUN 20 (8-23) mg/dL Creatinine 0.88 (0.60-1.20) mg/dL Glucose 60 L (70-105) mg/dL Hemoglobin A1c 3.8 ( - 5.6) % Calcium 8.1 L (8.6-10.3) mg/dL Calcium panel 02/12/19 Range/Units 00:36 Calcium 8.1 L (8.6-10.3) mg/dL Pituitary panel 02/12/19 Range/Units 00:36 Sodium 140 (136-145) mEq/L Potassium 3.8 (3.5-5.1) mEq/L Chloride 105 (98-107) mEq/L Carbon Dioxide 22 L (23-29) mEq/L BUN 20 (8-23) mg/dL Creatinine 0.88 (0.60-1.20) mg/dL Glucose 60 L (70-105) mg/dL Calcium 8.1 L (8.6-10.3) mg/dL Adrenal panel 02/12/19 Range/Units 00:36 Sodium 140 (136-145) mEq/L Potassium 3.8 (3.5-5.1) mEq/L Chloride 105 (98-107) mEq/L Carbon Dioxide 22 L (23-29) mEq/L BUN 20 (8-23) mg/dL Creatinine 0.88 (0.60-1.20) mg/dL Glucose 60 L (70-105) mg/dL Calcium 8.1 L (8.6-10.3) mg/dL All other labs normal. - Attending Attestation I have discussed the case in detail with the resident and the hospitalist. The decision was made to transfer the patient to [facility] for further management.
[2019-02-12] MEDS ORDERED: D5% in 0.45% NACL 1,000 ML IVC SCH (13:15)
--- NOTE | 2019-02-12 13:29 | Discharge Summary ---
Orders not resulted at time of discharge: Pending orders 02/10/19 23:51 Culture,Blood [BC] Stat 02/12/19 12:41 Prealbumin Routine 02/13/19 04:00 Basic Metabolic Panel AM 0400 Complete Blood Count w/o Diff [HEME] AM 0400 02/14/19 04:00 Basic Metabolic Panel AM 0400 Complete Blood Count w/o Diff [HEME] AM 0400 Date of Encounter: 02/12/19 Time of Encounter: 12:00 - Discharge Diagnosis (1) Weakness Priority: Primary Status: Acute (2) Alcohol abuse Priority: Secondary Status: Chronic (3) DVT prophylaxis Priority: Secondary Status: Acute (4) Vitamin D deficiency Priority: Secondary Status: Chronic (5) Pneumonia Priority: Secondary Status: Ruled-out Qualifiers: Pneumonia type: due to unspecified organism Laterality: left Lung location: lower lobe of lung Qualified Code(s): J18.1 - Lobar pneumonia, unspecified organism (6) HTN (hypertension) Priority: Secondary Status: Chronic Qualifiers: Hypertension type: essential hypertension Qualified Code(s): I10 - Essential (primary) hypertension (7) HLD (hyperlipidemia) Priority: Secondary Status: Chronic Qualifiers: Hyperlipidemia type: pure hypercholesterolemia Qualified Code(s): E78.00 - Pure hypercholesterolemia, unspecified; E78.0 - Pure hypercholesterolemia (8) Anxiety Priority: Secondary Status: Chronic (9) Altered mental status Priority: Primary Status: Acute Qualifiers: Altered mental status type: disorientation Qualified Code(s): R41.0 - Disorientation, unspecified (10) UTI (urinary tract infection) Priority: Primary Status: Acute Qualifiers: Urinary tract infection type: site unspecified Hematuria presence: without hematuria Qualified Code(s): N39.0 - Urinary tract infection, site not specified (11) Severe protein-calorie malnutrition Priority: Primary Status: Acute Hospital course: Ms. Siu is a 64 year old female sent to ER by residential for weakness and altered mental status. Patient was treated as UTI with Rocephin. However, patient was found severe malnutrition and poor intake. Patient had bariatric surgery in 2004 and had significant body weight loss from 500 pounds to 130 pounds now. Per family, patient's " esophagus doesn't open up" and has been fixed several times by her bariatric surgeon. Patient has generally poor intake and lost 13 kg since she was here last time in late January. Surgical consult was called and evaluated patient. Recommend transfer patient to [facility] for further bariatric surgery consult. I discussed with patient's sister Ms Renetta Yeh, agrees to transfer to [facility] for further management. Patient has severe vitamin D deficiency. I have seen and examined the patient today. Patient is awake alert but disoriented. Patient knows she is in [facility] and the name of president. She cannot tell the year and said this is 2019. Vitals are stable. Urine culture shows no growth. Consider mental status change is related to long-term malnutrition and vitamin deficiency. Called [facility] transfer center, will transfer patient to [facility] if she is accepted and bed is available. IV fluid with D5 and half normal saline started to maintain hydration. Discharge discussed with: patient, family - Time Spent with Patient Total time spent providing and/or coordinating discharge services: 40 minutes Time spent: Greater than 30 minutes - Discharge Medications Prescriptions: Continued Atorvastatin [Lipitor] 40 mg PO HS 30 Days #30 tablet Clopidogrel [Plavix] 75 mg PO DAILY 30 Days #30 tablet Cyanocobalamin (B-12) [Vitamin B12] 1,000 mcg PO DAILY 30 Days #30 tablet Ergocalciferol (VITAMIN D2) [Drisdol (50,000 Unit)] 50,000 unit PO QWEEK 42 Days #6 capsule Folic Acid 1 mg PO DAILY 30 Days #30 tablet Pantoprazole Sodium [Protonix] 40 mg PO DAILY Ondansetron HCl [Zofran] 4 mg PO Q6H PRN PRN Reason: Nausea Gabapentin [Neurontin] 100 mg PO TID ALPRAZolam [Xanax 0.25 MG Tablet] 0.25 mg PO Q6H PRN PRN Reason: Anxiety Metoprolol [Lopressor] 25 mg PO BID Lisinopril [Zestril] 5 mg PO DAILY hydrALAZINE [HydrALAZINE] 10 mg PO Q6H PRN PRN Reason: Blood Pressure - High raNITIdine HCl [Zantac] 150 mg PO DAILY Home Medications: Atorvastatin [Lipitor] 40 mg PO HS 30 Days #30 tablet 01/24/19 [Rx] Clopidogrel [Plavix] 75 mg PO DAILY 30 Days #30 tablet 01/24/19 [Rx] Cyanocobalamin (B-12) [Vitamin B12] 1,000 mcg PO DAILY 30 Days #30 tablet 01/24/19 [Rx] Ergocalciferol (VITAMIN D2) [Drisdol (50,000 Unit)] 50,000 unit PO QWEEK 42 Days #6 capsule 01/24/19 [Rx] Folic Acid 1 mg PO DAILY 30 Days #30 tablet 01/24/19 [Rx] ALPRAZolam [Xanax 0.25 MG Tablet] 0.25 mg PO Q6H PRN 02/11/19 [History] Gabapentin [Neurontin] 100 mg PO TID 02/11/19 [History] Lisinopril [Zestril] 5 mg PO DAILY 02/11/19 [History] Metoprolol [Lopressor] 25 mg PO BID 02/11/19 [History] Ondansetron HCl [Zofran] 4 mg PO Q6H PRN 02/11/19 [History] Pantoprazole Sodium [Protonix] 40 mg PO DAILY 02/11/19 [History] hydrALAZINE [HydrALAZINE] 10 mg PO Q6H PRN 02/11/19 [History] raNITIdine HCl [Zantac] 150 mg PO DAILY 02/11/19 [History] Allergies/Adverse Reactions: Allergy/AdvReac Type Severity Reaction Status Date / Time aspirin Allergy Seizure Verified 01/16/19 05:44 Date of admission: 02/11/19 00:09 Primary care physician: PCP NONE Consults: 02/11/19 02:17 Consult to Fish Hatchery Assistant [CONS] Routine Reason for SW Consult: Please assess patient for possible home needs for post-discharge planning. 02/11/19 03:02 Consult to Nutrition [CONS] Routine Comment: Consulting Provider: NUTRITION Reason for Dietary Consult: PO Supplementation 02/11/19 14:15 Consult to Occupational Therapy [CONS] Routine Comment: Evaluate, develop and implement POC Reason for Consult: weakness Does patient have active BEDREST order?: No Is patient medically & hemodynamically stable?: Yes Consult to Physical Therapy [CONS] Routine Comment: Evaluate, develop and implement POC Reason for Consult: Weakness Does patient have active BEDREST order?: No Is patient medically & hemodynamically stable?: Yes 02/12/19 11:12 Consult to Surgery [CONS] Routine Consulting Provider: Acute Care Surgery Reason for Consult: Malnutrition after bariatric surgery Call Completed: Yes Discharging clinician: Aly Ward Anticipated date of discharge: 02/12/19 - Constitutional Vitals: Temp Pulse Resp BP Pulse Ox 97.4 F L 86 16 121/84 100 02/12/19 11:59 02/12/19 11:59 02/12/19 11:59 02/12/19 11:59 02/12/19 11:59 General appearance: Present: cooperative, A&O X 2, pleasant, no acute distress, underweight Exam: Pt is AAO x 2, in NAD HEENT: NC/AT, PERRL Neck: Supple, no JVD, no LAD Lungs: CTA b/l Heart: S1S2, RRR Abd: Soft, nontender, BS present Ext: ROM wnl, no pedal edema Neuro: No focal deficit - Patient Status Disposition: Transfer Critical Access Hosp Condition: Serious Functional capacity at discharge: wheelchair bound Overall status at discharge: patient is not back to baseline - Discharge Instructions Follow Up With: NONE,PCP [Primary Care Provider] - - Diet and Activity Diet: diabetic diet
--- NOTE | 2019-02-12 14:15 | Electrocardiograph Report ---
[address] [place] [address] Test Date: 2019-02-10 Pat Name: Linsey Siu Department: EXAM20 Room: 3B21 Gender: F [employer] Senior Specialist: : 1955 Requested By: Reji Evans Order Number: [id number] Reading MD: Flash Lovelace Measurements Intervals [place] Rate: 70 P: 76 IL: 197 QRS: 24 QRSD: 93 T: 176 QT: 410 QTc: 443 Interpretive Statements Sinus rhythm Lateral ST-T changes, consider ischemia Electronically Signed On 02-12-2019 14:13:59 EDT by Flash Lovelace
--- NOTE | 2019-02-12 14:23 | Electrocardiograph Report ---
[place] [id number] Test Date: 2019-02-11 Pat Name: Linsey Siu Department: 113 Room: 3B21 Gender: F Associate Consulting Engineer: : 1955 Requested By: Rodolfo Wooten Order Number: [id number] Reading MD: Flash Lovelace Measurements Intervals [place] Rate: 72 P: 116 ME: 198 QRS: 193 QRSD: 94 T: 61 QT: 409 QTc: 433 Interpretive Statements SINUS RHYTHM RIGHT AXIS DEVIATION Electronically Signed On 02-12-2019 14:21:24 EDT by Flash Lovelace
[2019-02-12 15:29] VITALS: BP 130/86
== END 2019-02-12 16:00 | disposition critical access hospital (66) ==
LOC: 3BNU 19:13 → EMEROOARM 19:13 → 3BNU 02-11 00:46
PROVIDERS: ADMIT Pediatrics; ATTEND Pediatrics